=== PATIENT | female | born 1990 | race Caucasian/White ===

== ENCOUNTER 2018-01-30 16:08 | Inpatient (IN) | payer MEDICAID ==
[~2018-01-30] VITALS: Ht 154.9 cm; Wt 67.0 kg
[2018-01-30] MEDS ORDERED: OXYTOCIN 30U/ 0.9% NaCL 500ML 500 ML IV ONE (16:19)
[2018-01-30] MEDS: D5%-LACTATED RINGERS 1,000 ML IV SCH (16:19)
[2018-01-30] MEDS ORDERED: OXYTOCIN 30U/ 0.9% NaCL 500ML 500 ML IV PRN (16:19)
[2018-01-30] MEDS ORDERED: ONDANSETRON 2MG/ML, 2ML IVPush PRN (16:30)
[2018-01-30] MEDS: LACTATED RINGERS 1,000 ML IV SCH (16:30)
[2018-01-30] MEDS ORDERED: ALUMINUM/MAG/SIMETHICONE 30 ML UDC PO PRN (16:30)
[2018-01-30] MEDS ORDERED: FENTANYL PF 100 MCG/2ML IVPush PRN (16:30)
[2018-01-30] MEDS ORDERED: CALCIUM CARBONATE 500 MG TAB.CHEW PO PRN ×2 (16:30→21:30)
[2018-01-30] MEDS ORDERED: SODIUM CITRATE/CITRIC ACID 30 ML UDC PO PRN (16:30)
[2018-01-30 16:50] LABS: BASOPHILS # (AUTO) 0.03 x10^3/uL (0-0.1); BASOPHILS % (AUTO) 0 % (0-1); EOSINOPHILS # (AUTO) 0.02 x10^3/uL (0-0.4); EOSINOPHILS % (AUTO) 0 % (1-7); LYMPHOCYTES # (AUTO) 2.17 x10^3/uL (1-3.4); LYMPHOCYTES % (AUTO) 26 % (22-44); MD NO; MEAN CORPUSCULAR HEMOGLOBIN 27.5 pg (27.0-34.8); MEAN CORPUSCULAR VOLUME 83.3 fL (80-100); MEAN PLATELET VOLUME 7.5 fL (7.4-10.4); MONOCYTES # (AUTO) 0.64 x10^3/uL (0.2-0.8); MONOCYTES % (AUTO) 8 % (2-9); NEUTROPHILS % (AUTO) 66 % (42-75); PLATELET COUNT 287 x10^3/uL (130-400); RED BLOOD COUNT 3.96 x10^6/uL (3.82-5.3)
[2018-01-30] MEDS ORDERED: PLEASE ENTER ALLERGIES MC SCH (17:00)
[2018-01-30] MEDS ORDERED: PLEASE ENTER HEIGHT AND WEIGHT MC SCH (17:00)
[2018-01-30] MEDS ORDERED: OXYTOCIN 30U/ 0.9% NaCL 500ML 500 ML ONE ×2 (17:10→21:25)
[2018-01-30] MEDS ORDERED: NEWBORN KIT ONE (17:10)
[2018-01-30] MEDS ORDERED: MISOPROSTOL 200 MCG TABLET ONE (17:10)
[2018-01-30] MEDS ORDERED: LIDOCAINE 1%, 20ML ONE ×2 (17:10→17:11)
[2018-01-30] MEDS: PLEASE ENTER ALLERGIES MC SCH ×4 (17:30→23:30)
[2018-01-30 17:48] LABS: MICROSCOPIC INDICATED
[2018-01-30] MEDS ORDERED: FENTANYL PF 100 MCG/2ML ONE (20:24)
[2018-01-30] MEDS: OXYTOCIN 30U/ 0.9% NaCL 500ML 500 ML IV SCH (21:13)
[2018-01-30] MEDS ORDERED: IBUPROFEN 600 MG TABLET ONE (21:25)
[2018-01-30] MEDS: IBUPROFEN 600 MG TABLET PO PRN (21:27)
[2018-01-30] MEDS ORDERED: MISOPROSTOL 200 MCG TABLET PR PRN (21:30)
[2018-01-30] MEDS ORDERED: RHOGAM FROM BLOOD BANK 1 NOTE EA IM/IV ONE (21:30)
[2018-01-30] MEDS ORDERED: ACETAMINOPHEN 325 MG TABLET PO PRN ×2 (21:30)
[2018-01-30] MEDS ORDERED: DOCUSATE 100 MG CAPSULE PO PRN (21:30)
[2018-01-30] MEDS ORDERED: OXYcodone/APAP 5/325MG TABLET PO PRN ×2 (21:30)
[2018-01-30] MEDS ORDERED: MEASLES,MUMPS&RUBELLA VACC/PF 0.5 ML SQ PRN (21:30)
[2018-01-30] MEDS ORDERED: DIPH,PERTUSS(ACELL),TET VAC/PF NC IM-VACC PRN (21:30)
[2018-01-30] MEDS ORDERED: ONDANSETRON 2MG/ML, 2ML IV PRN (21:30)
[2018-01-30] MEDS ORDERED: MAGNESIUM HYDROXIDE 8%, 30ML UDC PO PRN (21:30)
[2018-01-30 23:05] VITALS: BP 102/68
[2018-01-31] MEDS: D5%-LACTATED RINGERS 1,000 ML IV SCH ×2 (00:19→08:19)
[2018-01-31] MEDS: LACTATED RINGERS 1,000 ML IV SCH ×2 (00:19→08:19)
[2018-01-31] MEDS: PLEASE ENTER ALLERGIES MC SCH ×4 (01:30→07:30)
[2018-01-31 04:00] VITALS: BP 105/67
[2018-01-31] MEDS: IBUPROFEN 600 MG TABLET PO PRN ×3 (04:31→21:11)
[2018-01-31 05:55] LABS: BASOPHILS # (AUTO) 0.04 x10^3/uL (0-0.1); BASOPHILS % (AUTO) 0 % (0-1); EOSINOPHILS # (AUTO) 0.02 x10^3/uL (0-0.4); EOSINOPHILS % (AUTO) 0 % (1-7); LYMPHOCYTES # (AUTO) 2.61 x10^3/uL (1-3.4); LYMPHOCYTES % (AUTO) 16 % (22-44); MD NO; MEAN CORPUSCULAR HEMOGLOBIN 27.4 pg (27.0-34.8); MEAN CORPUSCULAR HGB CONC 33.1 g/dL (32.4-35.8); MEAN CORPUSCULAR VOLUME 82.9 fL (80-100); MEAN PLATELET VOLUME 7.1 fL (7.4-10.4); MONOCYTES # (AUTO) 1.19 x10^3/uL (0.2-0.8); MONOCYTES % (AUTO) 7 % (2-9); NEUTROPHILS # (AUTO) 12.39 x10^3/uL (1.8-6.8); NEUTROPHILS % (AUTO) 76 % (42-75); PLATELET COUNT 240 x10^3/uL (130-400); RED BLOOD COUNT 3.59 x10^6/uL (3.82-5.3); RED CELL DISTRIBUTION WIDTH 17.3 % (9.6-15.2)
[2018-01-31] MEDS: OXYTOCIN 30U/ 0.9% NaCL 500ML 500 ML IV SCH ×2 (07:13→17:13)
[2018-01-31 07:45] VITALS: BP 99/58
[2018-01-31] MEDS: PRENATAL VIT/IRON/FA 1 EACH TABLET PO SCH (08:51)
[2018-01-31 12:00] VITALS: BP 98/63
[2018-01-31 17:50] VITALS: BP 101/70
[2018-01-31 19:10] VITALS: BP 104/66
[2018-02-01] MEDS: OXYTOCIN 30U/ 0.9% NaCL 500ML 500 ML IV SCH ×2 (03:13→13:13)
[2018-02-01 08:35] VITALS: BP 96/55
[2018-02-01] MEDS: PRENATAL VIT/IRON/FA 1 EACH TABLET PO SCH (08:35)
[2018-02-01] MEDS: IBUPROFEN 600 MG TABLET PO PRN (08:35)
[2018-02-01] MEDS ORDERED: IBUP-1222 PO (14:57)
== END 2018-02-01 16:26 | disposition home or self-care (01) | DRG 775 ==
LOC: LDIP 16:08 → 2NW 22:59
PROVIDERS: ADMIT Obstetrics & Gynecology; ATTEND Obstetrics & Gynecology
PROC: 10E0XZZ Delivery of Products of Conception, External Approach (ICD-10-PCS; principal; 2018-01-30)
PROC: 10907ZC Drainage of Amniotic Fluid, Therapeutic from Products of Conception, Via Natural or Artificial Opening (ICD-10-PCS; 2018-01-30)
DX: O99.344 Other mental disorders complicating childbirth (principal); O99.354 Diseases of the nervous system complicating childbirth; Z37.0 Single live birth; Z3A.37 37 weeks gestation of pregnancy; G43.909 Migraine, unspecified, not intractable, without status migrainosus; F41.8 Other specified anxiety disorders
CPT/HCPCS: 36415; 81001; 85025; 86850; 86900; J3010; J2590; J7120